=== PATIENT | male | born 1965 | race Caucasian/White ===

== ENCOUNTER 2018-02-12 13:50 | Emergency (ER) | payer OTHER, SELFPAY ==
[2018-02-12 13:56] VITALS: BP 123/78; PULSE 69; RESP 18; TEMP 36.6; O2SAT 98
[2018-02-12 16:45] VITALS: BP 119/88; PULSE 67; RESP 18; O2SAT 100
--- NOTE | 2018-02-12 16:59 | ED_ITS ---
HPI - Extremity Injury (Upper) <MAJOR Cooley - Last Filed: 02/12/18 22:29> General Chief Complaint: Extremity Injury, Upper Stated Complaint: RIGHT ARM TINGLING AND GOING NUMB Time Seen by Provider: 02/12/18 15:47 Source: patient Mode of arrival: ambulatory Limitations: no limitations History of Present Illness HPI narrative: 52-year-old male here for complaint of tingling down his right arm on and off for the last 2 and half weeks. He denies any trauma to the arm or to his neck area. He reports that certain positions worsened the pain such as sleeping on his right side. He does not have any neck pain at this time. He denies any arm pain at this time. He states that he has had neck problems in the past and had similar symptoms in his left arm couple years ago. He is ambulatory into the emergency room. He denies any other concerns or complaints. complaint: injury to: right Related Data Allergies Allergy/AdvReac Type Severity Reaction Status Date / Time iodine [IODINE] Allergy Mild nausea and Unverified 10/23/17 12:14 flushing Review of Systems <MAJOR Cooley - Last Filed: 02/12/18 22:29> Review of Systems All systems reviewed & are unremarkable except as noted in HPI and below Constitutional Denies chills, Denies fever(s), Denies lethargy and Denies weakness Eyes Denies change in vision, Denies eye discharge, Denies irritation and Denies loss of vision ENT Ears, Nose, Mouth, and Throat: Denies change in voice, Denies neck pain and Denies sore throat Cardiovascular Denies chest pain, Denies irregular heart rhythm, Denies lightheadedness, Denies palpitations, Denies dyspnea, Denies dyspnea on exertion and Denies orthopnea Respiratory Denies cough, Denies dyspnea, Denies dyspnea on exertion and Denies wheezing Gastrointestinal Gastrointestinal: Denies abdominal pain, Denies change in bowel habits, Denies diarrhea, Denies nausea and Denies vomiting Genitourinary Denies hematuria, Denies flank pain, Denies urinary incontinence and Denies urinary urgency Musculoskeletal Denies neck pain Comments: Intermittent Paresthesias to right arm Integumentary/Breasts Denies pruritus, Denies erythema, Denies rash and Denies wounds Neurologic Denies confusion, Denies loss of vision and Denies weakness Psychiatric Denies anxiety, Denies confusion, Denies depression, Denies homicidal ideation and Denies suicidal ideation Endocrine Denies palpitations Hematologic/Lymphatic Denies easy bruising Allergic/Immunologic Denies wheezing Exam <MAJOR Cooley - Last Filed: 02/12/18 22:29> Initial Vital Signs Initial Vital Signs: Vital Signs Temperature 97.8 F 02/12/18 13:56 Pulse Rate 69 02/12/18 13:56 Respiratory Rate 18 02/12/18 13:56 Blood Pressure 123/78 H 02/12/18 13:56 Pulse Oximetry 98 02/12/18 13:56 Const General: cooperative and well developed Nutritional Appearance: well nourished Orientation: alert, awake, oriented x3 and not confused HENMT Mouth: moist mucous membranes Eyes General: appearance normal, both eyes and all related structures Eyelids: eyelids normal Conjunctivae: conjunctivae normal Sclera: sclerae normal Pupils: PERRL EOM: EOM intact bilaterally Neck Neck: normal visual inspection, trachea midline, No lymphadenopathy, No midline deformity, No tender and No JVD Lymphatic: No lymphedema Chest Chest: normal inspection of the chest Resp Effort & Inspection: normal respiratory effort, able to speak in complete sentences, no respiratory distress and no use of accessory muscles Auscultation: clear to auscultation bilaterally, no rales, no rhonchi and no wheezes Cardio Rate: regular rate Rhythm: regular rhythm Heart Sounds: no click, no gallops, no murmurs and no rubs Pulses: normal peripheral pulses Skin General: no rashes or lesions noted, No jaundice and No petechiae Neuro General: alert, oriented x3, gait normal and no focal motor deficits Speech: speech normal Extrem Right upper extremity: normal to inspection, full ROM and normal capillary refill; no cyanosis and no edema Other: Right arm with no deformities. No swelling and no ecchymosis. No erythema. Distal sensation is intact. Full range of motion to the right arm. Distal pulses are intact. Strength equal bilateral upper extremities <Evan Canada DO - Last Filed: 02/18/18 18:22> Initial Vital Signs Initial Vital Signs: Vital Signs Temperature 97.8 F 02/12/18 13:56 Pulse Rate 69 02/12/18 13:56 Respiratory Rate 18 02/12/18 13:56 Blood Pressure 123/78 H 02/12/18 13:56 Pulse Oximetry 98 02/12/18 13:56 Course <MAJOR Cooley - Last Filed: 02/12/18 22:29> Orders Ordered: ED Orders 02/12/18 14:02 EKG-12 Lead Stat Vital Signs - 8 hr 02/12/18 16:45 Pulse Rate 67 Respiratory Rate 18 Blood Pressure [Left Arm] 119/88 H Pulse Oximetry 100 <Evan Canada DO - Last Filed: 02/18/18 18:22> Orders Ordered: ED Orders 02/12/18 14:02 EKG-12 Lead Stat Vital Signs - 8 hr 02/12/18 16:45 Pulse Rate 67 Respiratory Rate 18 Blood Pressure [Left Arm] 119/88 H Pulse Oximetry 100 MDM - Extremity Injury (Upper) <MAJOR Cooley - Last Filed: 02/12/18 22:29> MDM Narrative Medical decision making narrative: Recommend patient obtain MRI for further observation to rule out stenosis/radiculopathy to the cervical spine. Over-the- counter ibuprofen for anti-inflammatory effects. He is instructed to follow up with his primary care provider in the next few days for referral for MRI. For any worsening symptoms return to the emergency room. Gentle range of motion to the neck and shoulder area to see if it helps the symptoms. Discharge Plan Departure Patient Disposition: Home, Self-Care Clinical Impression: Paresthesia of right upper extremity Discharge Date/Time: 02/12/18 17:03 Interventions: ED Discharge Assessment Last Done: 02/12/18 17:02 Instructions: DI for Numbness/tingling Activity Restrictions/Additional Instructions: Recommend following up with primary care provider for further evaluation and MRI of the neck to rule out any complications of the neck that may be causing the tingling in right arm. Use [id number] ibuprofen for for anti- inflammatory effects and see if it helps her symptoms. Gentle range of motion to the shoulder and the neck and arm to see if it helps symptoms as well. Follow up with her primary care provider the next few days for further evaluation and MRI referral for any worsening symptoms return to the emergency room. Referrals: [facility] [Provider Group] <Evan Canada DO - Last Filed: 02/18/18 18:22> Cosign ED Attending Cosignature Attestation: I was available for consultation during this patient's emergency department encounter
== END 2018-02-12 17:03 | disposition home or self-care (01) ==
PROVIDERS: Emergency Provider Nurse Practitioner Family
DX: R20.2 Paresthesia of skin (principal)
CPT/HCPCS: 93005; 93010; 99282; 99283

== ENCOUNTER 2019-07-21 06:50 | Emergency (ER) | payer OTHER, SELFPAY ==
[2019-07-21 06:50] VITALS: BP 145/84; PULSE 100; RESP 20; TEMP 36.6; O2SAT 97; BMI 31.1
--- NOTE | 2019-07-21 07:26 | ED_ITS ---
HPI - URI/Sore Throat General Chief Complaint: Upper Respiratory Symptoms Stated Complaint: 'got the crud' Time Seen by Provider: 07/21/19 07:06 Source: patient Mode of arrival: Ambulatory Limitations: no limitations History of Present Illness HPI Narrative: Patient comes emergency department complaining rhinorrhea, sore throat, cough productive of green phlegm, and inability to sleep the last 5 days. He states the illness started with fever and chills feeling that lasted only about 24 hours. Now, he states the worse thing is that he feels as though he can't sleep because of the discomfort. He states he has exhausted and has not been able to go to work or do his daily workouts. He states he is otherwise very healthy. He has not had any known sick contacts. No abdominal pain, nausea, or vomiting. No chest pain. No shortness of breath. He states he has a headache that is pressure like. He states he has been trying [id number] remedies at home which do not seem to have been helping. Related Data Previous Rx's Medication Instructions Recorded acetaminophen-codeine 1 tab PO Q4H PRN #14 tab 07/21/19 [Tylenol-Codeine #3] albuterol sulfate 2 puff INHALATION Q4-6H PRN #6.7 07/21/19 gram Allergies Allergy/AdvReac Type Severity Reaction Status Date / Time iodine [IODINE] Allergy Mild nausea and Unverified 10/23/17 12:14 flushing Review of Systems Constitutional Constitutional: Denies chills, Denies fatigue, Denies fever(s), Denies frequent falls, Denies lethargy and Denies weakness Eyes Eyes: Denies change in vision, Denies eye discharge, Denies irritation and Denies loss of vision ENT Ears, Nose, Mouth, and Throat: Denies change in voice, Denies dizziness, Denies neck pain, Denies sore throat and Denies throat swelling Comments: Rhinorrhea, cough, sore throat Cardiovascular Cardiovascular: Denies chest pain, Denies irregular heart rhythm, Denies lightheadedness, Denies palpitations, Denies dyspnea, Denies dyspnea on exertion and Denies orthopnea Respiratory Respiratory: Reports cough, Denies dyspnea, Denies dyspnea on exertion and Denies wheezing Gastrointestinal Gastrointestinal: Denies abdominal pain, Denies change in bowel habits, Denies diarrhea, Denies nausea and Denies vomiting Genitourinary Genitourinary: Denies hematuria, Denies flank pain, Denies urinary incontinence and Denies urinary urgency Musculoskeletal Musculoskeletal: Denies back pain, Denies muscle weakness, Denies neck pain, Denies numbness and Denies tingling Integumentary/Breasts Skin/Breast: Denies pruritus, Denies erythema, Denies rash and Denies wounds Neurologic Neurologic: Denies behavioral changes, Denies confusion, Denies dizziness, Denies frequent falls, Denies loss of vision, Denies numbness, Denies tingling and Denies weakness Psychiatric Psychiatric: Denies anxiety, Denies behavioral changes, Denies confusion, Denies depression, Denies homicidal ideation and Denies suicidal ideation Endocrine Endocrine: Denies fatigue, Denies flushing and Denies palpitations Hematologic/Lymphatic Hematologic/Lymphatic: Denies easy bruising Allergic/Immunologic Allergic/Immunologic: Denies urticaria, Denies throat swelling and Denies wheezing Patient History Medical History Medical history non-contributory (Acute) Social History Smoking Status: Never smoker Smoking Status: Never smoker alcohol intake frequency: 0-2 drinks per day Substance Use Type: does not use Exam Initial Vital Signs Initial Vital Signs: Vital Signs Temperature 97.9 F 07/21/19 06:50 Pulse Rate 100 H 07/21/19 06:50 Respiratory Rate 20 07/21/19 06:50 Blood Pressure 145/84 H 07/21/19 06:50 Pulse Oximetry 97 07/21/19 06:50 Const General: cooperative and well developed Nutritional Appearance: well nourished Orientation: alert, awake, oriented x3 and not confused [facility] Head: normocephalic and atraumatic Ears: external ears normal Nose: external nose normal and No nasal discharge Face and sinus: face symmetric and No dry mucous membranes Mouth: oral mucosae normal and moist mucous membranes Teeth and gingiva: dentition normal Eyes General: appearance normal, both eyes and all related structures Eyelids: eyelids normal Conjunctivae: conjunctivae normal Sclera: sclerae normal Pupils: PERRL EOM: EOM intact bilaterally Neck Neck: normal visual inspection, trachea midline, No lymphadenopathy, No midline deformity and No JVD Lymphatic: No lymphedema Chest Chest: normal inspection of the chest Resp Effort & Inspection: normal respiratory effort, able to speak in complete sentences, no respiratory distress and no use of accessory muscles Auscultation: clear to auscultation bilaterally, no rales, no rhonchi and no wheezes Other: Intermittent dry cough Cardio Rate: regular rate Rhythm: regular rhythm Heart Sounds: no click, no gallops, no murmurs and no rubs Pulses: normal peripheral pulses GI Inspection: non-distended Palpation: soft, no hepatosplenomegaly, No guarding, No pulsatile mass and No tender Auscultation: normal bowel sounds Back/Spine/Pelvis Back: No CVA tenderness Cervical Spine: cervical ROM normal and No pain with cervical ROM Thoracic/Lumbar Spine: thoracic and lumbar spine normal to inspection Skin General: no rashes or lesions noted, No jaundice and No petechiae Neuro General: alert, oriented x3, gait normal and no focal motor deficits Speech: speech normal Extrem General: full ROM, no clubbing, cyanosis or edema, no pedal edema and no calf tenderness Psych Appearance: well kempt Mental Status: mental status grossly normal Attitude: cooperative Thought Content: normal and suicidality Judgment: judgment good Course Course Course Narrative: Patient was treated symptomatically in the emergency department and worked up with influenza swab, which was negative. We discussed home management of the symptoms, as well as the usual indications for return. Orders Ordered: Discontinued Medications Acetaminophen/Codeine Phosphate (Tylenol #3) 1 tab PO NOW ONE Stop: 07/21/19 07:31 Last Admin: 07/21/19 07:44 Dose: 1 tab Documented by: CAROLINA Ketorolac Tromethamine (Toradol) 30 mg IM NOW ONE Stop: 07/21/19 07:31 Last Admin: 07/21/19 07:45 Dose: 30 mg Documented by: CAROLINA Prednisone (Deltasone) 60 mg PO NOW ONE Stop: 07/21/19 07:31 Last Admin: 07/21/19 07:44 Dose: 60 mg Documented by: CAROLINA Vital Signs Vital signs: Vital Signs - 8 hr 07/21/19 06:50 Temperature 97.9 F Pulse Rate 100 H Respiratory Rate 20 Blood Pressure 145/84 H Pulse Oximetry 97 MDM - URI/Sore Throat Medical Records Attestation: I reviewed the patient's medical records. Lab Data Attestation: I reviewed the patient's lab results. Labs: Lab Results 07/21/19 Range/Units 07:05 Influenza A (RT-PCR) Flu a negative (NEGATIVE) Influenza B (RT-PCR) Flu b negative (NEGATIVE) Discharge Plan Departure Patient Disposition: Home Clinical Impression: Upper respiratory infection Qualifiers: URI type: unspecified viral URI Qualified Code(s): J06.9 - Acute upper respiratory infection, unspecified Conjunctivitis Qualifiers: Conjunctivitis type: acute Acute conjunctivitis type: unspecified Laterality: left Qualified Code(s): H10.32 - Unspecified acute conjunctivitis, left eye Discharge Date/Time: 07/21/19 08:43 Instructions: DI for Conjunctivitis, DI for Viral Upper Respiratory Infection -- Adult Activity Restrictions/Additional Instructions: Your influenza testing is negative. Your symptoms are consistent with a viral upper respiratory infection which will be self-limited on its own. Antibiotics will not help this infection. Please consider using Afrin/oxymetazoline for the next few nights to help clear your nose and allow you to sleep better. One full spray in each nostril before you go to bed should be sufficient. You may buy this [id number]. You may also use, along with ibuprofen 600 mg every 6 hours, some Tylenol 3 to help with your cough and discomfort. If you feel like you are having a lot of irritation in your airways, you may also use a puff of the inhaler to help clear this up. Be sure to get plenty of fluids to drink. Prescriptions: New acetaminophen-codeine [Tylenol-Codeine #3] 300-30 mg tablet 1 tab PO Q4H PRN (Reason: pain) Qty: 14 RF: 0 albuterol sulfate 90 mcg/actuation HFA aerosol inhaler 2 puff INHALATION Q4-6H PRN (Reason: wheezing/expiratory irritation) Qty: 6.7 RF: 0
[2019-07-21] MEDS: predniSONE 20 MG TABLET 60 MG PO (07:44)
[2019-07-21] MEDS: CODEINE/ACETAMINOPHEN 30/300 TABLET 1 TAB PO (07:44)
[2019-07-21] MEDS: KETOROLAC 60 MG/2 ML VIAL 30 MG IM (07:45)
[2019-07-21 07:56] LABS: Influenza A - CEPHEID Flu A NEGATIVE (NEGATIVE); Influenza B - CEPHEID Flu B NEGATIVE (NEGATIVE)
== END 2019-07-21 08:43 | disposition home or self-care (01) ==
PROVIDERS: Emergency Provider Emergency Medicine
DX: J06.9 Acute upper respiratory infection, unspecified (principal); H10.32 Unspecified acute conjunctivitis, left eye
CPT/HCPCS: 87502; 96372; 99281; 99283; J1885

== ENCOUNTER → 2020-05-14 14:58 | Outpatient (CLI) | payer OTHER, SELFPAY ==
[2020-05-16 02:25] LABS: COVID19 Sendout Not Detected (Not Detect)
== END ==
PROVIDERS: Visit Provider Nurse Practitioner
DX: Z11.59 Encounter for screening for other viral diseases (principal)
CPT/HCPCS: 87635

== ENCOUNTER 2020-05-17 09:24 | Day surgery (SDC) | payer OTHER, SELFPAY ==
[2020-05-13 07:51] VITALS: BMI 32.5
[2020-05-17] VITALS (14 sets, daily range): BP systolic 113–170; BP diastolic 62–100; PULSE 64–88; RESP 11–16; TEMP 36.3–36.8; O2SAT 94–100; BMI 32.1
[2020-05-17] MEDS: LACTATED RINGERS 1,000 ML 100 ML IV ×2 (10:17→12:13)
--- NOTE | 2020-05-17 10:19 | SUR.OPER ---
Supine on padded OR bed, head on pillow, arms secured on padded arm boards at <90 degrees abduction, legs uncrossed, safety belt at thigh, tape over blanket over lower legs.
--- NOTE | 2020-05-17 10:26 | PM.PREOP ---
Pre-operative Note COVID-19 COVID-19 status: Negative Interval Note History & Physical reviewed/Exam performed by Physician: Yes Changes to H&P: No
[2020-05-17] MEDS: CEFAZOLIN 2 GM/100 ML FROZ.PIGGY IV (10:38)
[2020-05-17] MEDS: BUPIVACAINE 0.25% (PF) VIAL 30 ML INJ (10:52)
--- NOTE | 2020-05-17 11:59 | PM.OP.1 ---
Operative Date/Time/Diagnoses Date of procedure: 05/17/20 Time of procedure: 11:59 Pre-op diagnosis: Symptomatic reducible left inguinal hernia Post-op diagnosis: same Procedure & Clinicians Procedure: Open left inguinal hernia repair with mesh Same procedure as scheduled: Yes Indications: 55-year-old man with a reducible left inguinal hernia here for elective repair Surgeon: Jarocho Hernández Anesthesia Type: General Operative Notes Findings: Large direct floor defect. no indirect defect Specimen(s): none sent Estimated Blood Loss (mL): 30 Procedure in detail: The patient was placed supine on the table and bilateral lower extremity compression devices were applied. Anesthesia was induced they were intubated with an LMA and received 2g of Ancef. A time-out was performed. They were prepped and draped in sterile fashion. The left external inguinal ring and the anterior superior iliac crest were identified and marked. 1 finger breath above the inguinal ligament the skin was infiltrated with 0.25% bupivacaine. The skin incision was made here and the subcutaneous tissues were divided with electrocautery exposing the external oblique aponeurosis which was then opened along the direction of its fibers. Using blunt dissection the internal oblique aporneurosis was from the external oblique upper leaflet to identify the iliohypogastric nerve. Using a kittner the cord was carefully dissected away from the inguinal canal adjacent to the pubic tubercle. The cord including the vas deferens, testicular bloody supply, ilioguinal and genital nerve were encircled with a Rosalinda drain. A large direct floor defect was identified and it was reduced into the abdomen and the internal oblique aporneuorsis was approximated to the inguinal ligament with Ethibond suture to reapproximate the floor. The cremasteric fibers surrounding the cord were divided using electrocautery adjacent to the internal ring.. The vas deferens and the testicular vessels were preserved and protected. A thorough examination of the cord content was made there was no evidence of an indirect defect. I selected a 7x 15 cm lightweight Pro Loop hernia mesh. The inferior medial aspect of the mesh was anchored to insertion of the rectus muscle to the pubic tubercle such that there was approximately 2 cm of tubercle overlap with Ethibond and then was run continuously along the inferior edge of the mesh to the shelving edge of the inguinal ligament. Interrupted 3 0 Vicryl suture was used to anchor the superior aspect of the mesh to the conjoined tendon in several places. The tails were then reapproximated loosely around the spermatic cord. The tails of the mesh were then tucked under the external oblique aponeurosis. The repair was checked for hemostasis. The wound was irrigated with sterile saline. The external oblique aponeurosis was reapproximated in a running fashion using 3 0 Vicryl. The subcutaneous tissues were reapproximated with 3 0 Vicryl skin closed with 4 0 Monocryl followed by the application of Dermabond. At the end of the operation I ensured that both testicles were within the scrotum. The sponge instrument count at the end operation was correct. The patient emerged from anesthesia was extubated and transferred to the postoperative care unit in stable condition. A total of 30 ml of of 0.25% bupivicaine was used to infiltrate the skin. Complications: none Post-operative Condition: stable Disposition: same day surgery
--- NOTE | 2020-05-17 12:07 | SUR.PHASEI ---
Arrived with oral airway for patency, on room air. Report to PAIGE Guzman
[2020-05-17] MEDS: OXYCODONE/ACETAMINOPHEN 5/325 TABLET 1 TAB PO (12:46)
[2020-05-17] MEDS: ONDANSETRON 4 MG/2 ML INJ IV (12:46)
== END 2020-05-17 13:17 | disposition home or self-care (01) ==
PROVIDERS: PCP Family Medicine; Referring Provider Surgery; Visit Provider Surgery
PROC: (CPT 49505; principal; 2020-05-17 10:45)
DX: K40.90 Unilateral inguinal hernia, without obstruction or gangrene, not specified as recurrent (principal); J45.909 Unspecified asthma, uncomplicated; K21.9 Gastro-esophageal reflux disease without esophagitis
CPT/HCPCS: 49505; C1781; J0690; J1100; J1885; J2250; J2405; J2704; J3010

== ENCOUNTER → 2022-06-15 06:57 | Outpatient (CLI) | payer OTHER, SELFPAY ==
[2022-06-15 08:16] LABS: Add Manual Diff / Slide Review NO; Basophils Absolute Auto 100 /uL (0-100); Basophils Percent Auto 0.9 % (0-2); Eosinophils Absolute Auto 200 /uL (0-450); Eosinophils Percent Auto 2.5 % (2-4); Hematocrit 44.2 % (41-53); Hemoglobin 14.6 g/dL (13.5-17.5); Lymphocytes Absolute Auto 2300 /uL (1100-4500); Lymphocytes Percent Auto 32.1 % (25-40); Mean Corpuscular HGB Conc 33.1 % (30-36); Mean Corpuscular Hemoglobin 28.6 PG (26-34); Mean Corpuscular Volume 86.3 fL (80-100); Monocytes Absolute Auto 800 /uL (0-900); Monocytes Percent Auto 11.4 % (3-14); Neutrophils Absolute Auto 3800 /uL (1500-7000); Neutrophils Percent Auto 53.1 % (50-75); Platelet Count 319 X10^3/uL (150-400); Red Blood Cell Count 5.12 X10^6/uL (4.5-5.9); Red Cell Distribution Width 13.2 % (11.6-14.8); White Blood Cell Count 7.1 X10^3/uL (4.5-11.0)
[2022-06-15 08:41] LABS: BUN Creatinine Ratio 12.1 (6-22); Blood Urea Nitrogen 15 mg/dL (9-20); Calcium 9.3 mg/dL (8.4-10.2); Carbon Dioxide 30 mmol/L (22-32); Chloride 100 mmol/L (98-107); Estimated Glomerular Filt Rate > 60 mL/min (>60); Glucose 102 mg/dL (70-100); HEMOLYSIS < 15 (0-50); Potassium 4.9 mmol/L (3.4-5.1); Sodium 139 mmol/L (137-145)
== END ==
PROVIDERS: Referring Provider Orthopaedic Surgery; Visit Provider Orthopaedic Surgery
DX: Z01.818 Encounter for other preprocedural examination (principal); Z01.812 Encounter for preprocedural laboratory examination; M25.562 Pain in left knee
CPT/HCPCS: 36415; 80048; 85025; 93005

== ENCOUNTER → 2022-06-25 12:21 | Outpatient (CLI) | payer OTHER, SELFPAY ==
[2022-06-25 13:47] LABS: COVID19 -Nasal RAPID Negative (Negative)
== END ==
PROVIDERS: Referring Provider Orthopaedic Surgery; Visit Provider Orthopaedic Surgery
DX: Z20.822 Contact with and (suspected) exposure to COVID-19 (principal)
CPT/HCPCS: 87635; C9803

== ENCOUNTER 2022-06-27 10:48 | Day surgery (SDC) | payer OTHER, SELFPAY ==
[2022-06-25 15:17] VITALS: BMI 31.8
[2022-06-27] VITALS (11 sets, daily range): BP systolic 118–149; BP diastolic 69–90; PULSE 77–105; RESP 12–18; TEMP 36.2–36.6; O2SAT 95–100; BMI 31.8
--- NOTE | 2022-06-27 06:00 | DI.RAD.S_ITS ---
PROCEDURE: XR KNEE LT 1TO2V INDICATIONS: UKA, post op left knee TECHNIQUE: Two views of the knee acquired. COMPARISON: [facility], XR KNEE 4+ VIEWS LEFT, 10/16/2021, 10:48. FINDINGS: Bones: Patient is status post medial unicompartmental arthroplasty. Hardware components are in expected positions. Visualized bony structures are intact. Soft tissues: Overlying postoperative changes are noted. IMPRESSION: Status post medial unicompartmental arthroplasty with expected postoperative findings. Approved by: Krishna Chandler M.D. on 06/27/2022 at 15:03
[2022-06-27] MEDS: PREGABALIN 75 MG CAPSULE PO (11:40)
[2022-06-27] MEDS: LACTATED RINGERS 1,000 ML 42 ML IV (11:40)
[2022-06-27] MEDS: CELECOXIB 200 MG CAPSULE PO (11:41)
[2022-06-27] MEDS: ACETAMINOPHEN 325 MG TABLET 975 MG PO (11:41)
--- NOTE | 2022-06-27 11:41 | PM.PREOP ---
Pre-operative Note COVID-19 COVID-19 status: Negative Result date/Date tested (Pos, Neg/Pending): 06/25/22 Interval Note History & Physical reviewed/Exam performed by Physician: Yes Changes to H&P: No
--- NOTE | 2022-06-27 11:56 | SUR.OPER ---
Supine on padded OR bed. Pillow under head, arms secured on padded armboards <90 degree abduction. Safety belt across torso. Non-operative leg secured with tape over blanket over lower leg. Operative leg secured in [place]/Nathe positioner. Foam padded brace at thigh of operative leg.
[2022-06-27] MEDS: CEFAZOLIN 2 GM/100 ML PREMIX 100 ML IV (12:35)
[2022-06-27] MEDS: TRANEXAMIC ACID 1,000 MG VIAL 2000 MG INJ ×2 (12:45→13:30)
[2022-06-27] MEDS: BUPIVACAINE LIPOSOME 266 MG/20 ML VIAL INJ (12:45)
[2022-06-27] MEDS: MORPHINE 4 MG/ML INJ INJ (12:45)
[2022-06-27] MEDS: BUPIVACAINE 0.5% W/ EPI (PF) 30 ML VIAL INJ (12:45)
--- NOTE | 2022-06-27 14:01 | P.OP_ITS ---
Operative Date/Time/Diagnoses Date of procedure: 06/27/22 Time of procedure: 14:01 Pre-op diagnosis: Left knee osteoarthritis Post-op diagnosis: same Procedure & Clinicians Procedure: Left knee medial unicompartmental arthroplasty Same procedure as scheduled: Yes Indications: The patient has had progressively worsening left knee pain with radiographic changes consistent with arthritis in the medial compartment. Non-operative management has failed and the patient has requested unicompartmental knee replacement. The risks, benefits and alternatives to surgery were discussed with the patient prior to proceeding. Risks discussed included, but were not limited to, failure to relieve pain, stiffness, infection, nerve damage, deep venous th rombosis, pulmonary embolism, stroke, coma, heart attack, permanent paralysis and , as well as the potential need for eventual revision of the prosthetic. Surgeon: Merrill Love Document Clerk: Elmira Peterson Click Yes if Unassisted: No Anesthesia Type: General and Local Operative Notes Findings: Severe medial compartmental osteoarthritis Closure Type: primary Specimen(s): none sent Prosthetic devices, grafts, tissues, transplants, or devices: Implants used in this procedure manufactured by the [employer] and included a Journey 2 unicompartmental knee system with a size 9 left medial tibial base plate with an 8 mm polyethylene insert and a size 8 left medial femoral component. Applied: implant(s) Estimated Blood Loss (mL): 25 Blood products transfused: none Tourniquet time (min): 44 Procedure in detail: The patient was seen in the pre-operative area, where the left knee was identified as the operative site and this was marked with my initials. The patient received pre-operative antibiotics, and was taken to the operating room and placed on the operative table in the supine position. After satisfactory anesthesia, a multimedia authoring specialist out was performed. The left leg was encircled with a tourniquet about the proximal thigh, and the leg was prepared from the toes to the tourniquet with ChloroPrep in the usual fashion and draped through sterile drapes. The leg was elevated and exsanguinated with Eschmark bandage and the tourniquet inflated to 250 mmHg pressure. The knee was approached through an approximately 8 cm incision medial to the patellar tendon and carried into the knee through a mid vastus arthrotomy. The anterior osteophytes and soft tissues were removed. The tibial cutting guide was applied. The horizontal and vertical cuts were made. The tibial fragment was removed. Flexion and extension gaps were checked with the appropriate blocks. The distal femoral cutting guide was applied. The femur was sized and the chamfer and posterior cuts made. The meniscus was removed. The tibia was sized and the appropriate trial placed. The femoral trial was then applied and the lug holes drilled through the femoral trial. A trial insert was placed in the knee was placed through a range of motion and stability was checked. The knee was stable throughout the range of motion. Range of motion was approximately 0-140 degrees. There was 2 mm of additional laxity which was checked using the ?yaneth stick?. The trials were then removed. The bone was treated with pulsatile lavage and dried with a sponge. Cement was impacted on the ends of the bone and the prosthetics placed. The trial tibial insert was placed along with the yaneth stick in the knee was held in extension until cement cured. Excess cement was removed after curing as well. The anterior capsule, skin and posterior capsule were injected with a mixture of 60 ml 0.25% Marcaine mixed with 20 ml Exparel and 4 mg of morphine for post-operative pain control. After confirming there was no extruded cement posteriorly, the final tibial insert was placed. The knee was copiously irrigated and the tourniquet deflated. Hemostasis was obtained. The capsule was closed with interrupted # 2 polyester sutures with 0 Vicryl in the muscular extension. The subcutaneous layer was closed with 3-0 Vicryl, and the skin with a running 3-0 V-Lock suture and Dermabond. An Aquacel Ag dressing was applied and the patient was taken to recovery having tolerated the procedure well. The services of a skilled investigative assistant were required during this case for positioning, exposure and for retraction to protect vital structures. Without the presence of Ms. Beh the procedure could not have been completed in a safe, expedient fashion. Complications: none Post-operative Condition: stable Disposition: PACU Plan for aftercare: The patient will be allowed to weight bear as tolerated. They will be discharged today. He will progress with physical therapy. They already have pain medications at home.
[2022-06-27] MEDS: OXYCODONE IR 5 MG TABLET PO (17:00)
== END 2022-06-27 16:46 | disposition home or self-care (01) ==
PROVIDERS: Referring Provider Orthopaedic Surgery; Visit Provider Orthopaedic Surgery
PROC: (CPT 27446; principal; 2022-06-27 12:30)
DX: M17.12 Unilateral primary osteoarthritis, left knee (principal); Y93.B9 Activity, other involving muscle strengthening exercises; Y92.39 Other specified sports and athletic area as the place of occurrence of the external cause
CPT/HCPCS: 27446; 73560; C1776; C1713; C9290; J0690; J1100; J2250; J2270; J2405; J2704; J3010

== ENCOUNTER 2023-06-19 07:27 | Day surgery (SDC) | payer OTHER, SELFPAY ==
[2023-06-17 10:42] VITALS: BMI 31.3
[2023-06-19] VITALS (9 sets, daily range): BP systolic 125–149; BP diastolic 69–85; PULSE 60–86; RESP 12–97; TEMP 36.3–37.2; O2SAT 92–95; BMI 31.1
[2023-06-19] MEDS: LACTATED RINGERS 1,000 ML 21 ML IV ×2 (07:55→09:43)
--- NOTE | 2023-06-19 07:58 | PM.PREOP ---
Pre-operative Note Interval Note History & Physical reviewed/Exam performed by Physician: Yes Changes to H&P: No
[2023-06-19] MEDS: ACETAMINOPHEN 325 MG TABLET 975 MG PO (08:33)
[2023-06-19] MEDS: CEFAZOLIN 2 GM/100 ML PREMIX 100 ML IV (08:48)
--- NOTE | 2023-06-19 09:16 | SUR.OPER ---
Supine on padded OR bed, head on pillow, arms secured on padded arm boards at <90 degrees abduction, legs uncrossed, safety belt at thigh, tape over blanket over lower legs.
--- NOTE | 2023-06-19 09:28 | SUR.OPER ---
Supine on padded OR bed, head on pillow, arms padded and tucked at sides, legs uncrossed, safety belt at thigh, tape over blanket over lower legs . Gel pad under bilateral heels.
[2023-06-19] MEDS: BUPIVACAINE 0.25% (PF) VIAL 30 ML INJ (09:36)
--- NOTE | 2023-06-19 10:52 | PM.OP.1 ---
Operative Date/Time/Diagnoses Date of procedure: 06/19/23 Time of procedure: 10:52 Pre-op diagnosis: Bilateral inguinal hernia recurrence Post-op diagnosis: same Procedure & Clinicians Procedure: Laparoscopic repair of bilateral inguinal hernia Same procedure as scheduled: Yes Indications: 58-year-old man with symptomatic bilateral inguinal hernia with previous right and left open hernia repair Surgeon: Jarocho Hernández Anesthesia Type: General Operative Notes Findings: Bilateral direct inguinal hernia defect. Cord lipoma bilaterally however no indirect hernias Specimen(s): none sent Estimated Blood Loss (mL): 30 Procedure in detail: The patient was brought to the operating room and placed supine on the table. Bilateral sequential compression devices were applied. General anesthesia was induced and they were intubated with an endotracheal tube. A loza cath was placed in sterile fashion. They received Ancef prior to skin incision. They were prepped and draped in sterile fashion. A time out was performed to ensure the correct patient, procedure and necessary equipment within the operating room. The skin was infiltrated with 0.25% bupivicaine. A 1 cm supra umbilical midline incision was made. The fascia was sharply incised and the abdomen entered traumatically. A 10mm balloon port was placed and pneumoperitoneum was established at 15mm Hg. Inspection of the abdomen demonstrated no evidence of injury upon entry. Two 5 mm ports were then placed under direct visualization in the right and left lower quadrant lateral to the rectus muscle. A right and left direct hernias were observed. There were adhesions between the sigmoid colon and the left pelvic side wall which were carefully dissected. Starting on the left side the peritoneum 4 cm superior to the deep inguinal ring between the medial umbilical ligament and the anterior superior iliac spine was incised. The medial preperitoneal dissection was carried out into the space of Retzius bluntly, the bladder was swept inferiorly, the pubis and Irving's ligament were identified. Next attention was turned towards the lateral aspect of the peritoneal flap. The preperitoneal fat with the testicular vessels was carefully dissected off the inferior peritoneal flap. The cord was carefully inspected there was a cord lipoma which was skeltonized off the cord preserving the testicular vessels and the vas deferns. The attachments to the direct hernia sac were divided and the direct defect was reduced. A large Bard 3D Max mesh was then placed into the abdomen and positioned such that the myopectineal orifice was completely covered with good overlap on all sides. The peritoneal flap was then repositioned back to its original position and a running V lock suture was used to close the peritoneum such that no bowel could herniate into the preperitoneal space. The area was examined for hemostasis. Next the right side was addressed. The peritoneum 4 cm superior to the deep inguinal ring between the medial umbilical ligament and the anterior superior iliac spine was incised. The medial preperitoneal dissection was carried out into the space of Retzius bluntly, the bladder was swept inferiorly, the pubis and Irving's ligament were identified. Next attention was turned towards the lateral aspect of the peritoneal flap. The preperitoneal fat with the testicular vessels was carefully dissected off the inferior peritoneal flap. The cord was carefully inspected there was no evidence of indirect defect. There was a similar cord lipoma which was dissected off. The attachments to the direct hernia sac were divided and the direct defect was reduced. A large Bard 3D Max mesh was then placed into the abdomen and positioned such that the myopectineal orifice was completely covered with good overlap on all sides. The peritoneal flap was then repositioned back to its original position and a running V lock suture was used to close the peritoneum such that no bowel could herniate into the preperitoneal space. The area was examined for hemostasis. The 5mm trocars were removed under direct visualization and pneumoperitoneum was deflated through the umbilical trocar, The fascia at the umbilicus was closed with 0-Vicryl in figure of 8 fashion, skin closed with 4-0 Monocyl followed by Dermabond. The sponge and instrument count at the end of the case was correct. Both testicles were entirely within the scrotum at the end of the case. The patient emerged from anesthesia was extubated and transferred to recovery in stable condition. Complications: none Post-operative Condition: stable Disposition: same day surgery
[2023-06-19] MEDS: OXYCODONE IR 5 MG TABLET PO ×2 (11:35→12:28)
[2023-06-19] MEDS: ONDANSETRON 4 MG ODT SL (12:40)
== END 2023-06-19 12:50 | disposition home or self-care (01) ==
PROVIDERS: PCP Student in an Organized Health Care Education/Training Program; Referring Provider Surgery; Visit Provider Surgery
PROC: 0YQ64ZZ Repair Left Inguinal Region, Percutaneous Endoscopic Approach (ICD-10-PCS; CPT 49651; principal; 2023-06-19 08:45)
DX: K40.21 Bilateral inguinal hernia, without obstruction or gangrene, recurrent (principal); D17.6 Benign lipomatous neoplasm of spermatic cord; K66.0 Peritoneal adhesions (postprocedural) (postinfection)
CPT/HCPCS: 49651; J0330; J0690; J1100; J1885; J2405; J2704; J3010

== ENCOUNTER 2024-06-25 12:32 | Day surgery (SDC) | payer OTHER, SELFPAY ==
--- NOTE | 2024-06-25 | PATH_ITS ---
[facility] Accession Number: [id number] No. of containers..02 Tissue . 01 Material submitted: . PART A: colon - ASCENDING COLON POLYP PART B: rectum - RECTAL POLYP . 01 Diagnosis: A. ASCENDING COLON, POLYPECTOMY: Tubular adenoma. - B. RECTUM, POLYPECTOMY: Tubular adenoma. [facility] 06/26/2024 1445 Local . 01 Electronically signed: . Ron Larsen MD, Pathologist NPI- [id number] . 01 Gross description: . Part A: ASCENDING COLON POLYP: Received in formalin are multiple fragment(s) of pitt, soft tissue measuring 0.2 x 0.2 x 0.1 cm to 0.6 x 0.4 x 0.2 cm submitted entirely in 1 cassette(s) Part B: RECTAL POLYP: Received in formalin are 2 fragment(s) of pitt, soft tissue measuring 0.1 x 0.1 x 0.1 cm to 0.5 x 0.5 x 0.3 cm submitted entirely in 1 cassette(s) /LESLY 06/26/2024 0016 Local . 01 Pathologist provided ICD-10: Z12.11 . 01 CPT . 905217, [id number] Specimen Comment: A courtesy copy of this report has been sent to [phone] Performed at: [address] [address], [place], [place] [id number] MD Rohit Campbell MD Phone: [phone]
[2024-06-25 13:58] VITALS: BP 150/90; PULSE 88; RESP 18; TEMP 36.4; O2SAT 99
[2024-06-25] MEDS: ACETAMINOPHEN 325 MG TABLET 1000 MG PO (14:05)
--- NOTE | 2024-06-25 14:13 | P.HP_ITS ---
History of Present Illness History of Present Illness Date Patient Seen: 06/25/24 Time Patient Seen: 14:13 Chief complaint: Colonoscopy Narrative: Shaji Bruce is a 59-year-old man here for a colonoscopy. He has had 2 prior colonoscopies with no polyps. No known family history of colon cancer. [facility] Medical History (Updated 06/25/24 @ 14:14 by Rui Saxena MD) Kidney stones GERD (gastroesophageal reflux disease) Asthma Medical history non-contributory Surgical History (Updated 06/17/23 @ 09:56 by Elle James RN) Status post unicompartmental knee replacement, left (06/2022) Hx of left inguinal hernia repair (05/17/20) History of surgery (2012) Hx of knee surgery (2013) Hx of lithotripsy H/O right inguinal hernia repair Family History Father Diabetes mellitus Hypertension Social History marital status: unmarried,single household members: none lives independently: Yes occupational status: employed Smoking Status: Never smoker alcohol intake: never substance use type: does not use Meds Home Medications and Allergies Home Medications Medication Instructions Recorded Confirmed Type glucosamine sulf dipot 2 cap PO DAILY 05/17/20 06/25/24 History chlr,msm,chond 550 mg-C 30 mg-karen 1 mg capsule (Glucosamine Chondroitin) multivitamin 1 tab PO DAILY 06/17/23 06/25/24 History omega 3-fju-gof-fish oil 1,000 mg 1 cap PO DAILY 06/17/23 06/25/24 History (120 mg-180 mg) capsule (Fish Oil) omeprazole 20 mg capsule,delayed 20 mg PO DAILY 06/17/23 06/25/24 History release acetaminophen 325 mg capsule 650 mg (2 x 325 mg) PO QID PRN 06/19/23 06/25/24 Rx (Tylenol) pain #60 caps docusate sodium 100 mg capsule 100 mg PO BID #30 caps 06/19/23 06/25/24 Rx (Colace) ibuprofen 200 mg tablet 400 mg (2 x 200 mg) PO Q6H #60 tabs 06/19/23 06/25/24 Rx Allergies Allergy/AdvReac Type Severity Reaction Status Date / Time iodine [IODINE] Allergy Mild nausea and Verified 06/25/24 14:09 flushing-IV only; skin ok Exam Vital Signs (past 8 hours): - 06/25/24 13:58 Temperature 97.5 F L Pulse Rate 88 Respiratory Rate 18 Blood Pressure 150/90 H Pulse Oximetry 99 Oxygen Delivery Method Room Air Oxygen Delivery Method Room Air Const General: healthy appearing Assessment & Plan Assessment and plan (1) Colon cancer screening: Status: Acute Plan Colonoscopy Time-Based Coding :: [TOTAL MINUTES] spent with patient and on the chart (including review of chart, obtaining history, exam, reviewing outside data, placing orders, documenting exam and treatment plan, and counseling patient) on [DATE].
--- NOTE | 2024-06-25 14:57 | PM.OP.COLON ---
Operative Date/Time/Diagnoses Date of procedure: 06/25/24 Time of procedure: 14:57 Pre-op diagnosis: Colon cancer screening Post-op diagnosis: same Procedure & Clinicians Study performed: Colonoscopy Same procedure as scheduled: Yes Surgeon: Rui Saxena Procedure Notes Procedure in detail: Surgeon: Rui Saxena MD Anesthesia: Ag Jeong CRNA Procedure: The patient was brought to the endoscopy suite, placed in left lateral decubitus position. The patient was connected to monitoring devices. A time-out was performed. Sedation was administered. Once the patient was adequately sedated, a digital rectal exam was performed and was normal. The scope was then inserted and advanced to the cecum where the appendiceal orifice was identified and photographed. The scope was then slowly withdrawn over greater than 6 minutes. The mucosa was thoroughly inspected. There was 7 mm polyp in the ascending colon removed with a cold snare. There was a 4 mm polyp in the rectum removed with a cold snare. The scope was retroflexed in the rectum. No other abnormalities were found. The scope was straightened and removed. The patient was awakened and brought to recovery. Scope withdrawal time: 13 minutes Sedation time: 27 minutes EBL: 5 mL Findings: 7 mm ascending polyp and 4 mm rectal polyp Post-procedure Disposition: PACU
[2024-06-25 15:00] VITALS: BP 112/86; PULSE 79; RESP 14; TEMP 36.1; O2SAT 98
[2024-06-25 15:07] VITALS: BP 121/86; PULSE 79; RESP 12; O2SAT 97
[2024-06-25 15:11] VITALS: BP 126/84; PULSE 76; RESP 12; TEMP 36.6; O2SAT 96
[2024-06-25 15:16] VITALS: BP 128/81; PULSE 79; RESP 18; TEMP 36.6; O2SAT 98
== END 2024-06-25 15:21 | disposition home or self-care (01) ==
PROVIDERS: PCP Student in an Organized Health Care Education/Training Program; Referring Provider Surgery; Visit Provider Surgery
PROC: 0DJD8ZZ Inspection of Lower Intestinal Tract, Via Natural or Artificial Opening Endoscopic (ICD-10-PCS; CPT 45378; principal; 2024-06-25 14:15)
DX: Z12.11 Encounter for screening for malignant neoplasm of colon (principal); D12.2 Benign neoplasm of ascending colon; K62.1 Rectal polyp
CPT/HCPCS: 45385; J2704